=== PATIENT | female | born 1930 | race Caucasian/White ===

== ENCOUNTER 2019-05-30 06:53 | Day surgery (SDC) | payer MEDICARE, MEDICAID ==
[~2019-05-30] VITALS: Ht 152.4 cm; Wt 81.6 kg
[~2019-05-30 06:53] MED LIST: METF-414 PO; SYNTHROID PO
[2019-05-30] MEDS ORDERED: ASPI-1393 MT (07:42)
[2019-05-30] MEDS ORDERED: LIDOCAINE HCL 1% 20ML VIAL (Pyxis) INJ ONE ×2 (08:19→09:05)
[2019-05-30] MEDS ORDERED: IOHEXOL-300 100 ML BOTTLE ONE (08:19)
[2019-05-30] MEDS ORDERED: MIDAZOLAM HCL 2 MG/2 ML VIAL ONE (08:48)
[2019-05-30] MEDS ORDERED: FENTANYL CITRATE/PF 50MCG/ML 2ML VIAL ONE (08:48)
[2019-05-30] MEDS ORDERED: NICARDIPINE 100MCG/ML 10ML VIAL (CATH LAB) IV ONE (09:10)
[2019-05-30] MEDS ORDERED: NITROGLYCERIN 50MCG/ML 10ML VIAL (CATH LAB) IV ONE (09:10)
[2019-05-30] MEDS ORDERED: HEPARIN SODIUM 1,000 UNIT/1ML VIAL IV ONE (09:10)
[2019-05-30] MEDS ORDERED: CEFAZOLIN 1000MG PREMIX 50 ML IV ONE (09:17)
[2019-05-30] MEDS ORDERED: ONDANSETRON HCL 4MG/2ML INJ IV PRN (09:45)
[2019-05-30] MEDS ORDERED: ACETAMINOPHEN 325MG TABLET PO PRN (09:45)
== END 2019-05-30 15:40 | disposition home or self-care (01) ==
LOC: CCL 06:53
PROVIDERS: ATTEND Specialist
DX: I25.118 Atherosclerotic heart disease of native coronary artery with other forms of angina pectoris (principal); I10 Essential (primary) hypertension; E11.9 Type 2 diabetes mellitus without complications; E03.9 Hypothyroidism, unspecified; Z88.5 Allergy status to narcotic agent; Z79.84 Long term (current) use of oral hypoglycemic drugs; Z83.3 Family history of diabetes mellitus; Z79.82 Long term (current) use of aspirin; Z79.899 Other long term (current) drug therapy
CPT/HCPCS: 82962; 93458; C1760; C1769; C1887; C1893; J0690; J1644; J2250; J3010; J3490; Q9967

== ENCOUNTER → 2019-11-29 | Outpatient (CLI) | payer MEDICARE, MEDICAID ==
[~2019-11-29] MED LIST changes: +ASPI-1497 MT
== END | disposition home or self-care (01) ==
LOC: RAD 13:17
PROVIDERS: ATTEND Podiatrist Foot & Ankle Surgery
DX: M79.672 Pain in left foot (principal)
CPT/HCPCS: 73630

== ENCOUNTER 2022-05-02 18:42 | Inpatient (IN) | payer MEDICARE, MEDICAID ==
[~2022-05-02] VITALS: Ht 152.4 cm; Wt 76.7 kg
[2022-05-02 20:07] LABS: BASOPHILS % 0.2 % (0.0-2.0); EOSINOPHILS % 0.5 % (0.0-5.0); HEMATOCRIT. 34.3 % (36.0-48.0); HEMOGLOBIN. 11.2 g/dL (12.0-16.0); LYMPHOCYTES % 13.4 % (20.0-50.0); MEAN CORPUSCULAR VOLUME 94.7 fL (81.0-99.0); MEAN PLATELET VOLUME 8.9 fl (7.4-10.4); MONOCYTES % 7.8 % (2.0-8.0); NEUTROPHILS % 78.1 % (40.0-76.0); PLATELET 251 x1000/uL (130-400); RED BLOOD CELL COUNT 3.63 mill/uL (4.2-5.4); RED CELL DISTRIBUTION WIDTH 14.1 % (11.6-14.6)
[2022-05-02 20:19] LABS: CHLORIDE 109 mEq/L (98-107)
[2022-05-02] MEDS ORDERED: ASPIRIN 325MG TABLET PO ONE (22:00)
[2022-05-03] MEDS ORDERED: MORPHINE SULFATE 2 MG/ML CPJ (NOT FOR IM USE) IV PRN (05:15)
[2022-05-03] MEDS ORDERED: ONDANSETRON HCL 4MG/2ML INJ IV PRN (05:15)
[2022-05-03] MEDS ORDERED: NALOXONE HCL 0.4MG/ML VIAL IV PRN (05:15)
[2022-05-03 08:00] VITALS: BP 105/45
[2022-05-03] MEDS ORDERED: DEXTROSE 50% WATER 50ML SYRINGE IV PRN (08:30)
[2022-05-03] MEDS ORDERED: ACETAMINOPHEN 325MG TABLET PO PRN (08:30)
[2022-05-03] MEDS: ASPIRIN 81MG TABLET PO SCH (09:56)
[2022-05-03 12:00] VITALS: BP 108/41
[2022-05-03] MEDS ORDERED: REGADENOSON 0.4 MG/5 ML IV NR (12:00)
[2022-05-03] MEDS: BLOOD SUGAR DIAGNOSTIC STRIP TEST SCH ×3 (12:20→21:00)
[2022-05-03] MEDS: INSULIN LISPRO 100 UNITS/ML SUBCUT SCH ×3 (13:12→21:00)
[2022-05-03 16:00] VITALS: BP 102/85
[2022-05-03 18:00] VITALS: BP 102/85
[2022-05-03 20:00] VITALS: BP 110/53
[2022-05-04] VITALS: BP 105/47
[2022-05-04 04:00] VITALS: BP 106/46
[2022-05-04] MEDS: BLOOD SUGAR DIAGNOSTIC STRIP TEST SCH ×4 (06:34→21:39)
[2022-05-04 07:17] LABS: BASOPHILS % 0.1 % (0.0-2.0); EOSINOPHILS % 0.7 % (0.0-5.0); HEMATOCRIT. 30.6 % (36.0-48.0); HEMOGLOBIN. 10.2 g/dL (12.0-16.0); LYMPHOCYTES % 9.6 % (20.0-50.0); MEAN CORPUSCULAR HEMOGLOBIN 31.3 pg (28.0-32.0); MEAN CORPUSCULAR VOLUME 93.7 fL (81.0-99.0); MEAN PLATELET VOLUME 9.4 fl (7.4-10.4); MONOCYTES % 6.7 % (2.0-8.0); NEUTROPHILS % 82.9 % (40.0-76.0); PLATELET 203 x1000/uL (130-400); RED BLOOD CELL COUNT 3.27 mill/uL (4.2-5.4)
[2022-05-04 07:21] LABS: AMYLASE 107 IU/L (25-115)
[2022-05-04] MEDS: INSULIN LISPRO 100 UNITS/ML SUBCUT SCH ×4 (07:50→21:00)
[2022-05-04 08:00] VITALS: BP 128/71
[2022-05-04] MEDS: ASPIRIN 81MG TABLET PO SCH (09:58)
[2022-05-04] MEDS ORDERED: REGADENOSON 0.4 MG/5 ML IV ONE (11:46)
[2022-05-04 12:50] VITALS: BP 133/48
[2022-05-04] MEDS: SODIUM CHLORIDE 0.45% 1,000 ML IV SCH (14:50)
[2022-05-04 16:19] VITALS: BP 107/48
[2022-05-04 17:08] LABS: CLARITY URINE CLEAR (CLEAR); COLOR URINE DARK YELLOW (YELLOW); KETONES URINE NEGATIVE (NEGATIVE); LEUKOCYTE ESTERASE URINE 1+ (NEGATIVE); NITRITE URINE POSITIVE (NEGATIVE); OCCULT BLOOD URINE NEGATIVE (NEGATIVE); PROTEIN URINE TRACE (NEGATIVE); SPECIFIC GRAVITY URINE 1.022 (1.005-1.030)
[2022-05-04 20:00] VITALS: BP 106/55
[2022-05-05 00:10] VITALS: BP 144/64
[2022-05-05] MEDS: SODIUM CHLORIDE 0.45% 1,000 ML IV SCH ×2 (00:20→05:34)
[2022-05-05 04:00] VITALS: BP 147/66
[2022-05-05] MEDS: INSULIN LISPRO 100 UNITS/ML SUBCUT SCH ×2 (06:05→12:56)
[2022-05-05] MEDS: BLOOD SUGAR DIAGNOSTIC STRIP TEST SCH ×2 (06:05→12:05)
[2022-05-05 06:22] LABS: BASOPHILS % 0.1 % (0.0-2.0); EOSINOPHILS % 0.4 % (0.0-5.0); HEMATOCRIT. 31.7 % (36.0-48.0); HEMOGLOBIN. 10.6 g/dL (12.0-16.0); LYMPHOCYTES % 13.1 % (20.0-50.0); MEAN CORPUSCULAR HEMOGLOBIN 31.5 pg (28.0-32.0); MEAN CORPUSCULAR VOLUME 94.2 fL (81.0-99.0); MEAN PLATELET VOLUME 9.4 fl (7.4-10.4); MONOCYTES % 8.3 % (2.0-8.0); NEUTROPHILS % 78.1 % (40.0-76.0); PLATELET 205 x1000/uL (130-400); RED BLOOD CELL COUNT 3.37 mill/uL (4.2-5.4); RED CELL DISTRIBUTION WIDTH 13.8 % (11.6-14.6)
[2022-05-05 08:06] VITALS: BP 127/49
[2022-05-05] MEDS: ASPIRIN 81MG TABLET PO SCH (08:49)
[2022-05-05 10:58] VITALS: BP_SYST 119; BP_SYST 139; BP_DIAS 52
[2022-05-05] MEDS ORDERED: DOCUSATE SODIUM 100MG CAPSULE PO NR (11:15)
[2022-05-05 12:03] VITALS: BP 139/59
== END 2022-05-05 14:10 | disposition home health service (06) | DRG 206 ==
LOC: ER 18:42 → MICUSO 05-03 02:04 → 6WST 05-03 08:05
PROVIDERS: ADMIT Internal Medicine; ATTEND Internal Medicine
DX: M94.0 Chondrocostal junction syndrome [Tietze] (principal); E44.1 Mild protein-calorie malnutrition; D64.9 Anemia, unspecified; E03.9 Hypothyroidism, unspecified; E11.9 Type 2 diabetes mellitus without complications; F41.9 Anxiety disorder, unspecified; R00.0 Tachycardia, unspecified; R42 Dizziness and giddiness; E87.8 Other disorders of electrolyte and fluid balance, not elsewhere classified; R06.02 Shortness of breath; R74.01 Elevation of levels of liver transaminase levels; Z20.822 Contact with and (suspected) exposure to COVID-19; I25.10 Atherosclerotic heart disease of native coronary artery without angina pectoris; E78.5 Hyperlipidemia, unspecified; E87.5 Hyperkalemia; I10 Essential (primary) hypertension; Z79.4 Long term (current) use of insulin; Z90.49 Acquired absence of other specified parts of digestive tract; Z79.899 Other long term (current) drug therapy; Z79.82 Long term (current) use of aspirin; Z88.5 Allergy status to narcotic agent; Z68.33 Body mass index [BMI] 33.0-33.9, adult
CPT/HCPCS: 36415; 71045; 78452; 80048; 80053; 81003; 82150; 82962; 83880; 84443; 84484; 85025; 87426; 93005; 93017; 93306; 99285; A9500; J1815; J2270; J2405; J2785